=== PATIENT | male | born 1970 | race Caucasian/White ===

== ENCOUNTER → 2022-11-17 10:57 | Outpatient (CLI) | payer OTHER, SELFPAY ==
[2022-11-17 19:46] LABS: Alanine Aminotransferase 33 IU/L (<50); Albumin Globulin Ratio 1.3 (1.0-2.8); Alkaline Phosphatase 100 U/L (38-126); Aspartate Aminotransferase 31 IU/L (17-59); BUN Creatinine Ratio 13.4 (6-22); Bilirubin Total 0.2 mg/dL (0.2-1.3); Blood Urea Nitrogen 9 mg/dL (9-20); Calcium 8.8 mg/dL (8.4-10.2); Carbon Dioxide 28 mmol/L (22-32); Chloride 97 mmol/L (98-107); Cholesterol 210 mg/dL (140-199); Estimated Glomerular Filt Rate > 60 mL/min (>60); Globulin 3.1 g/dL (1.7-4.1); Glucose 87 mg/dL (70-100); HDL Cholesterol 70 mg/dL (40-60); HEMOLYSIS < 15 (0-50); LDL Cholesterol Calculated 66 mg/dL (<100); Potassium 4.5 mmol/L (3.4-5.1); Sodium 135 mmol/L (137-145); Total Protein 7.1 g/dL (6.3-8.2); Triglycerides 370 mg/dL (35-150)
[2022-11-17 19:50] LABS: Hematocrit 43.5 % (41-53); Hemoglobin 14.7 g/dL (13.5-17.5); Mean Corpuscular HGB Conc 33.8 % (30-36); Mean Corpuscular Hemoglobin 32.3 PG (26-34); Mean Corpuscular Volume 95.5 fL (80-100); Platelet Count 305 X10^3/uL (150-400); Red Blood Cell Count 4.56 X10^6/uL (4.5-5.9); Red Cell Distribution Width 12.5 % (11.6-14.8)
[2022-11-17 20:09] LABS: TSH w/ Reflex to FT4 0.78 uIU/mL (0.47-4.68)
== END ==
PROVIDERS: Family Provider Chiropractor; PCP Family Medicine; Visit Provider Family Medicine
DX: Z12.5 Encounter for screening for malignant neoplasm of prostate (principal); R03.0 Elevated blood-pressure reading, without diagnosis of hypertension
CPT/HCPCS: 80053; 80061; 84443; 85027; G0103

== ENCOUNTER 2022-11-29 22:13 | Emergency (ER) | payer OTHER, SELFPAY ==
[2022-11-29 22:30] VITALS: BP 178/118; PULSE 90; RESP 20; TEMP 36.6; O2SAT 97; BMI 25.6
[2022-11-30 00:13] VITALS: PULSE 87; O2SAT 98
[2022-11-30 00:14] VITALS: BP 181/112; PULSE 85; O2SAT 99
[2022-11-30 00:19] VITALS: BP 161/107; PULSE 83; O2SAT 98
[2022-11-30 00:21] LABS: Adenovirus Not Detected (Not Detect); B. parapertussis Not Detected (Not Detecte); Bordetella pertussis Not Detected (Not Detecte); Chlamydophila pneumoniae Not Detected (Not Detect); Coronavirus 229E Not Detected (Not Detect); Coronavirus HKU1 Not Detected (Not Detect); Coronavirus NL 63 Not Detected (Not Detect); Coronavirus OC43 Not Detected (Not Detect); Human Metapneumovirus Not Detected (Not Detect); Human Rhinovirus/Enterovirus Not Detected (Not Detect); Influenza A Not Detected (Not Detect); Influenza B Not Detected (Not Detect); Mycoplasma pneumoniae Not Detected (Not Detect); Parainfluenza Virus 1 Not Detected (Not Detect); Parainfluenza Virus 2 Not Detected (Not Detect); Parainfluenza Virus 3 Not Detected (Not Detect); Parainfluenza Virus 4 Not Detected (Not Detect); Respiratory Syncytial Virus Not Detected (Not Detect); SARS- CoV-2 Not Detected (Not Detecte)
--- NOTE | 2022-11-30 00:23 | ED_ITS ---
HPI - General Adult General Chief complaint: Upper Respiratory Symptoms Stated complaint: SOB since this morning, worsening Time Seen by Provider: 11/30/22 00:08 Source: patient Mode of arrival: Ambulatory History of Present Illness HPI narrative: Patient is a 52-year-old male who has reported that he has been having shortness of breath for the past several weeks. He has been on inhalers which she states has not been helping. He saw his primary clinic this morning. Had labs and a chest x-ray which reported as unremarkable. He stated that he was told that they would not be able to rule out a pulmonary embolism at the clinic so he was advised to come to ER. He denies chest pain. No lower extremity swelling. Some cough. It is nonproductive. No fevers. No prior history of lung pathology. Related Data Previous Rx's Medication Instructions Recorded albuterol sulfate 90 mcg/actuation 2 puff inhalation Q6H PRN 11/02/22 aerosol inhaler shortness of breath or wheezing #8.5 grams ipratropium bromide 17 2 puff inhalation TID PRN 11/23/22 mcg/actuation HFA aerosol inhaler shortness of breath or wheezing (Atrovent HFA) #12.9 grams losartan 50 mg tablet 50 mg PO .pm #30 tabs 11/23/22 tamsulosin 0.4 mg capsule 0.4 mg PO BEDTIME #30 caps 11/23/22 Allergies Allergy/AdvReac Type Severity Reaction Status Date / Time lisinopril Allergy Mild Cough Verified 11/29/22 15:30 Review of Systems Constitutional Constitutional: Reports system reviewed and no additional complaints, except as documented Cardiovascular Cardiovascular: Reports system reviewed and no additional complaints, except as documented Respiratory Respiratory: Reports system reviewed and no additional complaints, except as documented Gastrointestinal Gastrointestinal: Reports system reviewed and no additional complaints, except as documented Integumentary/Breasts Skin/Breast: Reports system reviewed and no additional complaints, except as documented Neurologic Neurologic: Reports system reviewed and no additional complaints, except as documented Hematologic/Lymphatic On Anticoagulants: No Patient History Medical History Anxiety Chicken pox (~1972) Chronic back pain (~2006) Foot pain (~2017) Former tobacco use Fractures (~2015) Migraines (~1996) Shoulder pain (~2006) Tinnitus (~2007) Wears glasses Surgical History (Updated 11/16/22 @ 22:05 by Sheila Roberts) Anesthesia History of kidney stones (~1994) Social History 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 sometimes beer. discussed cessation - has not tried before. he is considering) Smoking Status: Former smoker Substance Use Type: marijuana Exam Initial Vital Signs Initial Vital Signs: Vital Signs Temperature 97.9 F 11/29/22 22:30 Pulse Rate 90 11/29/22 22:30 Respiratory Rate 20 11/29/22 22:30 Blood Pressure 178/118 H 11/29/22 22:30 Pulse Oximetry 97 11/29/22 22:30 Oxygen Delivery Method Room Air 11/29/22 22:30 Const General: cooperative and comfortable HENMT Head: normal to inspection and normocephalic Resp Effort & Inspection: normal respiratory effort Auscultation: clear to auscultation bilaterally Cardio Rate: regular rate Rhythm: regular rhythm Neuro General: patient alert and patient awake Extrem General: No edema Course Orders Ordered: ED Orders 11/29/22 23:37 Complete Blood Count AUTO DIFF Stat Comprehensive Metabolic Panel Stat D Dimer Stat Troponin & CK Cardiac Panel Stat EKG-12 Lead Stat 11/30/22 00:20 BNP [NT-proBNP (BNP-Adult 18+)] Stat Vital Signs Vital signs: Vital Signs - 8 hr 11/30/22 00:13 11/30/22 00:14 11/30/22 00:14 Pulse Rate 87 85 Respiratory Rate Blood Pressure 181/112 H Pulse Oximetry 98 99 Oxygen Delivery Method Room Air Room Air 11/30/22 00:19 11/30/22 00:19 11/30/22 00:30 Pulse Rate 83 Respiratory Rate Blood Pressure 161/107 H 163/109 H Pulse Oximetry 98 Oxygen Delivery Method Room Air 11/30/22 00:30 11/30/22 01:00 11/30/22 01:30 Pulse Rate 81 78 73 Respiratory Rate 22 20 16 Blood Pressure 172/115 H 153/102 H Pulse Oximetry 96 98 95 Oxygen Delivery Method Room Air Room Air Room Air Medical Decision Making Medical Records Medical records reviewed: Yes I reviewed the patient's medical records. Lab Data Lab results reviewed: Yes I reviewed the patient's lab results. 11/30/22 00:20 11/30/22 00:20 Labs: Lab Results 11/29/22 11/30/22 11/30/22 Range/Units 22:46 00:20 00:20 WBC 10.0 (4.5-11.0) X10^3/uL RBC 4.72 (4.5-5.9) X10^6/uL Hgb 15.2 (13.5-17.5) g/dL Hct 43.9 (41-53) % MCV 93.1 (80-100) fL MCH 32.2 (26-34) PG MCHC 34.6 (30-36) % RDW 12.3 (11.6-14.8) % Plt Count 282 (150-400) X10^3/uL Neut % (Auto) 70.4 (50-75) % Lymph % (Auto) 18.7 L (25-40) % Greeley % (Auto) 9.1 (3-14) % Eos % (Auto) 1.2 L (2-4) % Baso % (Auto) 0.6 (0-2) % Neut # (Auto) 7100 H (9313-6872) /uL Lymph # (Auto) 1900 (4830-8779) /uL Greeley # (Auto) 900 (0-900) /uL Eos # (Auto) 100 (0-450) /uL Baso # (Auto) 100 (0-100) /uL D-Dimer 410 (<500) ng/ml Sodium (137-145) mmol/L Potassium (3.4-5.1) mmol/L Chloride (98-107) mmol/L Carbon Dioxide (22-32) mmol/L BUN (9-20) mg/dL Creatinine (0.66-1.25) mg/dL Estimated GFR (>60) mL/min BUN/Creatinine Ratio (6-22) Glucose (70-100) mg/dL Calcium (8.4-10.2) mg/dL Total Bilirubin (0.2-1.3) mg/dL AST (17-59) IU/L ALT (<50) IU/L Alkaline Phosphatase (38-126) U/L Total Creatine Kinase (55-170) U/L CK-MB (CK-2) (<2.37) ng/mL CK-MB (CK-2) Rel Index (1.5-5.0) % Troponin I (0.01-0.034) ng/mL NT-Pro-B Natriuret Pep (<125) pg/mL Total Protein (6.3-8.2) g/dL Albumin (3.5-5.0) g/dL Globulin (1.7-4.1) g/dL Albumin/Globulin Ratio (1.0-2.8) Chlamy pneumoniae PCR Not detected (Not Detect) Adenovirus (PCR) Not detected (Not Detect) B. pertussis DNA (PCR) Not detected (Not Detecte) B.parapertussis DNA PCR Not detected (Not Detecte) Coronavirus OC43 (PCR) Not detected (Not Detect) Coronavirus HKU1 (PCR) Not detected (Not Detect) Coronavirus 229E (PCR) Not detected (Not Detect) SARS-CoV-2 (PCR) Not detected (Not Detecte) Coronavirus NL63 (PCR) Not detected (Not Detect) Human Metapneumovir PCR Not detected (Not Detect) Influenza Type A (PCR) Not detected (Not Detect) Influenza Type B (PCR) Not detected (Not Detect) M. pneumoniae (PCR) Not detected (Not Detect) Parainfluenza 1 (PCR) Not detected (Not Detect) Parainfluenza 2 (PCR) Not detected (Not Detect) Parainfluenza 3 (PCR) Not detected (Not Detect) Parainfluenza 4 (PCR) Not detected (Not Detect) RSV (PCR) Not detected (Not Detect) Entero/Rhino (PCR) Not detected (Not Detect) 11/30/22 11/30/22 Range/Units 00:20 00:20 WBC (4.5-11.0) X10^3/uL RBC (4.5-5.9) X10^6/uL Hgb (13.5-17.5) g/dL Hct (41-53) % MCV (80-100) fL MCH (26-34) PG MCHC (30-36) % RDW (11.6-14.8) % Plt Count (150-400) X10^3/uL Neut % (Auto) (50-75) % Lymph % (Auto) (25-40) % Greeley % (Auto) (3-14) % Eos % (Auto) (2-4) % Baso % (Auto) (0-2) % Neut # (Auto) (5465-3154) /uL Lymph # (Auto) (5059-2297) /uL Greeley # (Auto) (0-900) /uL Eos # (Auto) (0-450) /uL Baso # (Auto) (0-100) /uL D-Dimer (<500) ng/ml Sodium 133 L (137-145) mmol/L Potassium 3.7 (3.4-5.1) mmol/L Chloride 100 (98-107) mmol/L Carbon Dioxide 25 (22-32) mmol/L BUN 13 (9-20) mg/dL Creatinine 0.72 (0.66-1.25) mg/dL Estimated GFR > 60 (>60) mL/min BUN/Creatinine Ratio 18.1 (6-22) Glucose 109 H (70-100) mg/dL Calcium 9.4 (8.4-10.2) mg/dL Total Bilirubin 0.5 (0.2-1.3) mg/dL AST 75 H (17-59) IU/L ALT 53 H (<50) IU/L Alkaline Phosphatase 142 H (38-126) U/L Total Creatine Kinase 118 (55-170) U/L CK-MB (CK-2) 1.18 (<2.37) ng/mL CK-MB (CK-2) Rel Index 1.0 L (1.5-5.0) % Troponin I < 0.012 (0.01-0.034) ng/mL NT-Pro-B Natriuret Pep 67 (<125) pg/mL Total Protein 7.9 (6.3-8.2) g/dL Albumin 4.4 (3.5-5.0) g/dL Globulin 3.5 (1.7-4.1) g/dL Albumin/Globulin Ratio 1.3 (1.0-2.8) Chlamy pneumoniae PCR (Not Detect) Adenovirus (PCR) (Not Detect) B. pertussis DNA (PCR) (Not Detecte) B.parapertussis DNA PCR (Not Detecte) Coronavirus OC43 (PCR) (Not Detect) Coronavirus HKU1 (PCR) (Not Detect) Coronavirus 229E (PCR) (Not Detect) SARS-CoV-2 (PCR) (Not Detecte) Coronavirus NL63 (PCR) (Not Detect) Human Metapneumovir PCR (Not Detect) Influenza Type A (PCR) (Not Detect) Influenza Type B (PCR) (Not Detect) M. pneumoniae (PCR) (Not Detect) Parainfluenza 1 (PCR) (Not Detect) Parainfluenza 2 (PCR) (Not Detect) Parainfluenza 3 (PCR) (Not Detect) Parainfluenza 4 (PCR) (Not Detect) RSV (PCR) (Not Detect) Entero/Rhino (PCR) (Not Detect) ECG Data Attestation: I personally reviewed and interpreted this ECG as follows: Interpretation: Sinus rhythm Ventricular rate is 63 Normal axis Normal QRS Normal QTC No ST T wave changes MDM Narrative Medical decision making narrative: Review the patient's medical record shows that the chest x-ray that was performed earlier today is unremarkable. Patient is not hypoxic. Lungs are clear. Low suspicion for pneumonia. D-dimer is negative. Troponins negative. Low suspicion for CHF. No indication for antibiotics. I do recommend that the patient has follow-up with his primary doctor to discuss the indications for a referral to have pulmonary function testing. No further workup required in the emergency department. Patient was given return precautions. He expressed understanding and agreement. Discharge Plan Departure Patient Disposition: Home Clinical Impression: Shortness of breath Instructions: How to Manage Shortness of Breath Activity Restrictions/Additional Instructions: I recommend that you continue all of your medications like we discussed. Also recommend you contact your primary doctor about follow-up with pulmonary function tests or a follow-up with a dressmaker garment fitter. Return to the emergency department for new symptoms. Prescriptions: No Action losartan 50 mg tablet 50 mg PO .pm Qty: 30 3RF Rx Instructions: . STOP lisinopril due to cough. tamsulosin 0.4 mg capsule 0.4 mg PO BEDTIME Qty: 30 5RF Atrovent HFA 17 mcg/actuation HFA aerosol inhaler 2 puff inhalation TID PRN (Reason: shortness of breath or wheezing) Qty: 12.9 0RF Rx Instructions: take before walking the hill. ok to skip doses. albuterol sulfate 90 mcg/actuation HFA aerosol inhaler 2 puff inhalation Q6H PRN (Reason: shortness of breath or wheezing) Qty: 8.5 0RF Hold Instructions: Patient reported did not work Rx Instructions: USE inhaler prior to exercise. Referrals: Carley العراقي MD [Primary Care Provider] - Stand Alone Forms: Patient Portal/API
[2022-11-30 00:30] VITALS: BP 163/109; PULSE 81; RESP 22; O2SAT 96
[2022-11-30 00:35] LABS: Add Manual Diff / Slide Review NO; Basophils Absolute Auto 100 /uL (0-100); Basophils Percent Auto 0.6 % (0-2); Eosinophils Absolute Auto 100 /uL (0-450); Eosinophils Percent Auto 1.2 % (2-4); Hematocrit 43.9 % (41-53); Hemoglobin 15.2 g/dL (13.5-17.5); Lymphocytes Absolute Auto 1900 /uL (1100-4500); Lymphocytes Percent Auto 18.7 % (25-40); Mean Corpuscular HGB Conc 34.6 % (30-36); Mean Corpuscular Hemoglobin 32.2 PG (26-34); Mean Corpuscular Volume 93.1 fL (80-100); Monocytes Absolute Auto 900 /uL (0-900); Monocytes Percent Auto 9.1 % (3-14); Neutrophils Absolute Auto 7100 /uL (1500-7000); Neutrophils Percent Auto 70.4 % (50-75); Platelet Count 282 X10^3/uL (150-400); Red Blood Cell Count 4.72 X10^6/uL (4.5-5.9); Red Cell Distribution Width 12.3 % (11.6-14.8)
[2022-11-30 00:43] LABS: D Dimer 410 ng/ml (<500)
[2022-11-30 00:46] LABS: Alanine Aminotransferase 53 IU/L (<50); Albumin 4.4 g/dL (3.5-5.0); Albumin Globulin Ratio 1.3 (1.0-2.8); Alkaline Phosphatase 142 U/L (38-126); Aspartate Aminotransferase 75 IU/L (17-59); BUN Creatinine Ratio 18.1 (6-22); Bilirubin Total 0.5 mg/dL (0.2-1.3); Blood Urea Nitrogen 13 mg/dL (9-20); Calcium 9.4 mg/dL (8.4-10.2); Carbon Dioxide 25 mmol/L (22-32); Chloride 100 mmol/L (98-107); Creatine Kinase 118 U/L (55-170); Estimated Glomerular Filt Rate > 60 mL/min (>60); Globulin 3.5 g/dL (1.7-4.1); Glucose 109 mg/dL (70-100); Potassium 3.7 mmol/L (3.4-5.1); Sodium 133 mmol/L (137-145); Total Protein 7.9 g/dL (6.3-8.2)
[2022-11-30 00:56] LABS: NT-proBNP (BNP-Adult 18+) 67 pg/mL (<125)
[2022-11-30 00:58] LABS: Troponin I < 0.012 ng/mL (0.01-0.034)
[2022-11-30 01:00] VITALS: BP 172/115; PULSE 78; RESP 20; O2SAT 98
[2022-11-30 01:02] LABS: Creatine Kinase MB 1.18 ng/mL (<2.37); HEMOLYSIS 41 (0-50)
[2022-11-30 01:30] VITALS: BP 153/102; PULSE 73; RESP 16; O2SAT 95
== END 2022-11-30 01:43 | disposition home or self-care (01) ==
PROVIDERS: Emergency Provider Emergency Medicine; Family Provider Chiropractor; PCP Family Medicine
DX: R06.02 Shortness of breath (principal); Z20.822 Contact with and (suspected) exposure to COVID-19
CPT/HCPCS: 80053; 82550; 82553; 83880; 84484; 85025; 85379; 87633; 99281; 99283

== ENCOUNTER → 2022-12-07 08:44 | Outpatient (CLI) | payer OTHER, SELFPAY ==
[2022-12-07 19:29] LABS: Alanine Aminotransferase 36 IU/L (<50); Albumin 4.2 g/dL (3.5-5.0); Albumin Globulin Ratio 1.3 (1.0-2.8); Alkaline Phosphatase 92 U/L (38-126); Aspartate Aminotransferase 38 IU/L (17-59); BUN Creatinine Ratio 9.5 (6-22); Bilirubin Total 0.3 mg/dL (0.2-1.3); Blood Urea Nitrogen 6 mg/dL (9-20); Calcium 8.7 mg/dL (8.4-10.2); Carbon Dioxide 27 mmol/L (22-32); Chloride 99 mmol/L (98-107); Estimated Glomerular Filt Rate > 60 mL/min (>60); Gamma Glutamyl Transpeptidase 103 U/L (15-73); Globulin 3.2 g/dL (1.7-4.1); Glucose 93 mg/dL (70-100); HEMOLYSIS < 15 (0-50); Potassium 4.1 mmol/L (3.4-5.1); Sodium 139 mmol/L (137-145); Total Protein 7.4 g/dL (6.3-8.2)
[2022-12-07 19:33] LABS: Hemoglobin A1C% w Est Avg Glu 5.5 % (4.0-6.0)
[2022-12-09 15:55] LABS: Hep C Virus Ab w/Reflex Quant NEGATIVE s/c (NEGATIVE)
== END ==
PROVIDERS: Family Provider Chiropractor; PCP Family Medicine; Visit Provider Physician Assistant
DX: E87.1 Hypo-osmolality and hyponatremia (principal); R06.02 Shortness of breath; R74.8 Abnormal levels of other serum enzymes
CPT/HCPCS: 80053; 82977; 83036; 86803

== ENCOUNTER → 2022-12-08 11:21 | Outpatient (CLI) | payer OTHER, SELFPAY ==
--- NOTE | 2022-12-09 15:41 | PM.PFT.1 ---
Pulmonary Function Test Referral & Results Date Patient Seen: 12/08/22 Results: The spirometry demonstrates an FVC of 0.23 L which is 101% of predicted. The FEV1 was measured at 3.97 L which is 100% of predicted. The FEV1/FVC ratio was 76 which is 98% of predicted. Following the administration of bronchodilator there was 29% improvement in FEF 25-75%. Lung volumes show an SVC of 5.40 L which is 107% of predicted. The diffusing capacity was measured at 38.48 which is 114% of predicted. The maximum voluntary ventilation was normal Interpretation: This study demonstrates normal pulmonary function
== END ==
PROVIDERS: Family Provider Chiropractor; PCP Family Medicine; Referring Provider Family Medicine; Visit Provider Family Medicine
DX: R06.00 Dyspnea, unspecified (principal); Z87.891 Personal history of nicotine dependence; J98.8 Other specified respiratory disorders
CPT/HCPCS: 94060; 94726; 94729

== ENCOUNTER 2023-02-24 08:33 | Day surgery (SDC) | payer OTHER, SELFPAY ==
--- NOTE | 2023-02-24 | PATH_ITS ---
[facility] Accession Number: [id number] No. of containers..05 Tissue . 01 Material submitted: . PART A: colon - ASCENDING POLYP PART B: colon - SIGMOID POLYP #1 PART C: colon - SIGMOID POLYP #2 PART D: colon - SIGMOID POLYP #3 PART E: rectum - RECTAL POLYPS . 01 Diagnosis: A. Ascending Colon, Polypectomy: Colonic mucosa with no diagnostic abnormality, consistent with polypoid redundancy. Additional levels were examined. . B. Sigmoid Colon, Polypectomy #1: Tubular adenoma. . C. Sigmoid Colon, Polyp #2: Tubular adenoma. . D. Sigmoid Colon, Polypectomy #3: Tubular adenoma. . E. Rectum, Polypectomy: Multiple fragments of tubular adenoma and hyperplastic polyp. [facility] 03/03/2023 1623 Local . 01 Electronically signed: . Carley Meadows MD, Pathologist NPI- [id number] . 01 Gross description: . Part A: ASCENDING POLYP: Received in formalin is 1 fragment(s) of mercedes, soft tissue measuring 1.2 x 0.4 x 0.4 cm submitted entirely in 1 cassette(s) Part B: SIGMOID POLYP #1: Received in formalin is 1 fragment(s) of mercedes, soft tissue measuring 1.1 x 1.0 x 1.1 cm which is trisected and submitted entirely in 1 cassette(s) Part C: SIGMOID POLYP #2: Received in formalin is 1 fragment(s) of mercedes, soft tissue measuring 0.7 x 0.7 x 1.0 cm which is bisected and submitted entirely in 1 cassette(s) Part D: SIGMOID POLYP #3: Received in formalin is 2 fragments of mercedes soft tissue measuring 0.7 x 0.7 x 0.6 cm in aggregate. Specimen is sectioned and submitted in its entirety in 2 cassettes. Part E: RECTAL POLYPS: Received in formalin are multiple fragment(s) of mercedes, soft tissue measuring 0.1 x 0.1 x 0.1 cm to 1.5 x 0.4 x 0.3 cm submitted entirely in 1 cassette(s) /LING 02/28/2023 1946 Local . 01 Pathologist provided ICD-10: D12.5, D12.8 . 01 CPT . 063432, 163042, 972006, 446041, 105053 Specimen Comment: A courtesy copy of this report has been sent to [phone] Performed at: 01 [facility] [address] [facility] [address] [facility], [place], [place] [id number] MD Skip Mathew MD Phone: [phone]
[2023-02-24] MEDS: LACTATED RINGERS 1,000 ML 100 ML IV (09:12)
[2023-02-24 09:13] VITALS: BP 138/95; PULSE 91; RESP 18; TEMP 36.2; O2SAT 100; BMI 27.0
--- NOTE | 2023-02-24 09:22 | PM.HP.1 ---
History of Present Illness History of Present Illness Date Patient Seen: 02/24/23 Time Patient Seen: 09:22 Chief complaint: Colonoscopy Narrative: Denis is a 52-year-old man who is here for colonoscopy. He has never had a colonoscopy before. He has no known family history of colon cancer. He is has recently been treated for hypertension and he has been somewhat dyspneic and is seen a dental hygiene instructor Pricilla. His next cardiology appointment is in a few weeks. 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 sometimes beer. discussed cessation - has not tried before. he is considering) Meds Home Medications and Allergies Home Medications Medication Instructions Recorded Confirmed Type tamsulosin 0.4 mg capsule 0.4 mg PO BEDTIME #30 caps 11/23/22 02/24/23 Rx atorvastatin 40 mg tablet 40 mg PO BEDTIME #30 tabs 01/13/23 02/24/23 Rx losartan 50 mg tablet 100 mg PO .pm #180 tabs 02/22/23 02/24/23 Rx naltrexone 50 mg tablet 50 mg PO DAILY #90 tabs 02/22/23 02/24/23 Rx Allergies Allergy/AdvReac Type Severity Reaction Status Date / Time lisinopril Allergy Mild Cough Verified 02/24/23 08:47 ipratropium [From Atrovent] AdvReac Intermediate shortness Verified 02/24/23 08:47 of breath Exam Const General: healthy appearing Resp Effort & Inspection: normal respiratory effort Assessment & Plan Assessment and plan (1) Screening for colon cancer: Status: Acute Plan We reviewed the risks and benefits of colonoscopy for colon cancer screening and he would like to proceed
--- NOTE | 2023-02-24 10:48 | PM.OP.COLON ---
Operative Date/Time/Diagnoses Date of procedure: 02/24/23 Time of procedure: 10:48 Pre-op diagnosis: Colon cancer screening Post-op diagnosis: same Procedure & Clinicians Study performed: Colonoscopy Same procedure as scheduled: Yes Surgeon: Anselmo Burton Procedure Notes Procedure in detail: Surgeon: Anselmo Burton MD Anesthesia: Guillermo Suarez CRNA Procedure: The patient was brought to the endoscopy suite, placed in left lateral decubitus position. The patient was connected to monitoring devices. A time-out was performed. Sedation was administered. Once the patient was adequately sedated, a digital rectal exam was performed and was normal. The scope was then inserted and advanced to the cecum where the appendiceal orifice was identified and photographed. The scope was then slowly withdrawn over greater than 6 minutes. The mucosa was thoroughly inspected. There was a 7 mm polyp in the ascending colon removed with a hot snare. There was a 1.5 cm sigmoid polyp at 28 cm removed with a hot snare and sent as ?sigmoid colon polyp 1.?. There was a 2 cm polyp in the sigmoid colon removed with a hot snare and sent as ?sigmoid polyp 2?. There was a 3 cm sigmoid colon polyp at 20 cm. The main portion of the polyp was removed with a hot snare and a portion of the base of the polyp was also removed with a hot snare and sent as ?sigmoid polyp 3?. There were 5 polyps in the rectum. The first rectal polyp was at 18 cm and was 1 cm. A second rectal polyp was at 16 cm and was 1 cm. In the mid to distal rectum there were 2 8 mm polyps and a 5 mm polyp all removed with hot snare. The most distal of these was at 15 cm. All the rectal polyps were sent together. The scope was retroflexed in the rectum. No other abnormalities were seen. The scope was straightened and removed. The patient was awakened and brought to recovery. Scope withdrawal time: 34 minutes Sedation time: 40 minutes EBL: 10 mL Findings: Multiple polyps as detailed above Post-procedure Disposition: PACU
[2023-02-24 10:49] VITALS: BP 92/64; PULSE 57; RESP 12; TEMP 36.1; O2SAT 93
[2023-02-24 10:55] VITALS: BP 93/65; PULSE 52; RESP 13; O2SAT 93
[2023-02-24 10:59] VITALS: BP 108/82; PULSE 78; RESP 23; O2SAT 96
[2023-02-24 11:04] VITALS: BP 114/84; PULSE 67; RESP 13; TEMP 36.3; O2SAT 97
[2023-02-24 11:14] VITALS: BP 130/97; PULSE 62; RESP 15; TEMP 36.3; O2SAT 96
== END 2023-02-24 11:33 | disposition home or self-care (01) ==
PROVIDERS: Family Provider Chiropractor; PCP Family Medicine; Referring Provider Surgery; Visit Provider Surgery
PROC: 0DJD8ZZ Inspection of Lower Intestinal Tract, Via Natural or Artificial Opening Endoscopic (ICD-10-PCS; CPT 45378; principal; 2023-02-24 09:45)
DX: Z12.11 Encounter for screening for malignant neoplasm of colon (principal); D12.5 Benign neoplasm of sigmoid colon; D12.8 Benign neoplasm of rectum
CPT/HCPCS: 45385; J2704

== ENCOUNTER → 2023-10-05 10:04 | Outpatient (CLI) | payer OTHER, SELFPAY ==
[2023-10-05 19:27] LABS: Add Manual Diff / Slide Review NO; Basophils Absolute Auto 100 /uL (0-100); Basophils Percent Auto 0.9 % (0-2); Eosinophils Absolute Auto 200 /uL (0-450); Eosinophils Percent Auto 2.8 % (2-4); Hematocrit 42.6 % (41-53); Hemoglobin 14.6 g/dL (13.5-17.5); Lymphocytes Absolute Auto 1300 /uL (1100-4500); Lymphocytes Percent Auto 23.4 % (25-40); Mean Corpuscular HGB Conc 34.4 % (30-36); Mean Corpuscular Hemoglobin 31.8 PG (26-34); Mean Corpuscular Volume 92.6 fL (80-100); Monocytes Absolute Auto 500 /uL (0-900); Monocytes Percent Auto 8.5 % (3-14); Neutrophils Absolute Auto 3700 /uL (1500-7000); Neutrophils Percent Auto 64.4 % (50-75); Platelet Count 287 X10^3/uL (150-400); White Blood Cell Count 5.7 X10^3/uL (4.5-11.0)
[2023-10-05 19:33] LABS: Hemoglobin A1C% w Est Avg Glu 5.3 % (4.0-6.0)
[2023-10-05 19:56] LABS: Alanine Aminotransferase 64 IU/L (<50); Albumin 4.1 g/dL (3.5-5.0); Albumin Globulin Ratio 1.2 (1.0-2.8); Alkaline Phosphatase 81 U/L (38-126); Aspartate Aminotransferase 47 IU/L (17-59); BUN Creatinine Ratio 15.5 (6-22); Bilirubin Total 0.8 mg/dL (0.2-1.3); Blood Urea Nitrogen 11 mg/dL (9-20); Calcium 9.8 mg/dL (8.4-10.2); Carbon Dioxide 29 mmol/L (22-32); Chloride 98 mmol/L (98-107); Cholesterol 158 mg/dL (140-199); Estimated Glomerular Filt Rate > 60 mL/min (>60); Gamma Glutamyl Transpeptidase 182 U/L (15-73); Globulin 3.3 g/dL (1.7-4.1); Glucose 112 mg/dL (70-100); HDL Cholesterol 73 mg/dL (40-60); HEMOLYSIS < 15 (0-50); LDL Cholesterol Calculated 63 mg/dL (<100); Potassium 4.5 mmol/L (3.4-5.1); Sodium 135 mmol/L (137-145); Total Protein 7.4 g/dL (6.3-8.2); Triglycerides 109 mg/dL (35-150)
[2023-10-08 04:33] LABS: Lipoprotein (a) 64.1 nmol/L (<75.0)
[2023-10-09 07:36] LABS: Insulin Level Total 10.6 uIU/mL (2.6-24.9)
== END ==
PROVIDERS: Family Provider Chiropractor; PCP Family Medicine; Visit Provider Naturopath
DX: Z00.00 Encounter for general adult medical examination without abnormal findings (principal); R74.8 Abnormal levels of other serum enzymes; R94.4 Abnormal results of kidney function studies; E78.00 Pure hypercholesterolemia, unspecified
CPT/HCPCS: 80053; 80061; 82977; 83036; 83525; 83695; 85025

== ENCOUNTER → 2024-04-23 10:57 | Outpatient (CLI) | payer BC, SELFPAY ==
[2024-04-23 20:41] LABS: Alanine Aminotransferase 52 IU/L (<50); Albumin 4.2 g/dL (3.5-5.0); Albumin Globulin Ratio 1.4 (1.0-2.8); Alkaline Phosphatase 107 U/L (38-126); Aspartate Aminotransferase 51 IU/L (17-59); Bilirubin Unconjugated 0.4 mg/dL (0.0-1.1); Globulin 3.1 g/dL (1.7-4.1); HEMOLYSIS < 15 (0-50); Total Protein 7.3 g/dL (6.3-8.2)
== END ==
PROVIDERS: Family Provider Chiropractor; PCP Family Medicine; Visit Provider Naturopath
DX: R94.5 Abnormal results of liver function studies (principal)
CPT/HCPCS: 80076

== ENCOUNTER 2024-12-02 08:56 | Observation (INO) | payer BC, SELFPAY ==
[2024-12-02] VITALS (12 sets, daily range): BP systolic 128–152; BP diastolic 72–97; PULSE 68–86; RESP 12–22; TEMP 36.6–36.7; O2SAT 96–99; BMI 26.9
--- NOTE | 2024-12-02 09:20 | ED_ITS ---
HPI - Abdominal Pain General Chief Complaint: Skin/Abscess/Foreign Body Stated Complaint: cant swallow Time Seen by Provider: 12/02/24 09:13 Source: patient Mode of arrival: Family Vehicle History of Present Illness HPI narrative: Patient is a healthy 54-year-old male who presents today with steak stuck in his esophagus 2 days. He reports it has been there since Tuesday. He did not eat anything all day yesterday. He is tried to keep sips of fluid down it works the often it does not. He is thrown up it is painful. No longer able to swallow his own secretions. He was able to have some black coffee and keep it down. He tried warm sylvia tiffani all night on Tuesday. Related Data Previous Rx's Medication Instructions Recorded naltrexone 50 mg tablet 50 mg PO DAILY #90 tabs 02/22/23 hydrochlorothiazide 25 mg tablet 25 mg PO QAM #30 tabs 04/21/23 thiamine HCl (vitamin B1) 100 mg See Rx Instructions PO DAILY #90 05/19/23 tablet tabs losartan 50 mg tablet 100 mg (2 x 50 mg) PO QPM for 10/18/23 blood pressure - take every day even if normal #60 tabs tamsulosin 0.4 mg capsule 0.4 mg PO ONCE PM #90 caps 11/21/23 atorvastatin 40 mg tablet 40 mg PO ONCE PM for cholesterol - 03/30/24 prevents heart attack/stroke #30 tabs Allergies Allergy/AdvReac Type Severity Reaction Status Date / Time lisinopril Allergy Mild Cough Verified 12/02/24 09:18 ipratropium [From Atrovent] AdvReac Intermediate shortness Verified 12/02/24 09:18 of breath Patient History Medical History Wears glasses Anxiety Migraines (~1996) Shoulder pain (~2006) Fractures (~2015) Foot pain (~2017) Chronic back pain (~2006) Chicken pox (~1972) Tinnitus (~2007) Former tobacco use Surgical History Anesthesia History of kidney stones (~1994) Social History household members: none 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 RESPIRATORY: No stridor not drooling to be managing secretions ABDOMEN: Soft, nontender. Normoactive bowel sounds all 4 quadrants. No guarding or rebound. EXTREMITIES: Normal range of motion, no clubbing or edema. Neurovascularly intact NEUROLOGICAL: Alert and oriented x4.Normal gait and speech. SKIN: Warm, dry, no laceration, no petechiae, no rashes or lesions. Course Orders Ordered: ED Orders 12/02/24 09:49 Chest [XR chest 2V] Stat Discontinued Medications Acetaminophen (Acetaminophen 325 Mg Tablet) 650 mg PO NOW ONE Stop: 12/02/24 12:38 Benzocaine (Benzocaine/Menthol 1 Owen Pkt) 1 each PO PRN PRN PRN Reason: Sore Throat Last Admin: 12/02/24 12:54 Dose: 1 each Documented By: ESTHER Dexamethasone (Dexamethasone 10 Mg/Ml Vial) 8 mg IV NOW PRN PRN Reason: Nausea And Vomiting Fentanyl (Fentanyl 100 Mcg/2 Ml Inj) 0 mcg IV Q5M PRN PRN Reason: Pain, Moderate (4-6) Glucagon (Glucagon,Human Recombinant 1 Mg/Ml Vial) 1 mg IV NOW ONE Stop: 12/02/24 09:23 Last Admin: 12/02/24 10:01 Dose: 1 mg Documented By: LEESA Hydroxyzine HCl (Hydroxyzine Hcl 25 Mg Tablet) 25 mg PO NOW PRN PRN Reason: Pain, Mild (1-3) Sodium Chloride (Normal Saline 0.9%) 1,000 mls @ 1,000 mls/hr IV BOLUS ONE Stop: 12/02/24 10:54 Last Infusion: 12/02/24 11:21 Dose: Infused Documented By: Admin: 12/02/24 10:09 Dose: 1,000 mls/hr Documented By: LEESA Lactated Ringer's (Lactated Ringers) 1,000 mls @ 42 mls/hr IV CONT UMBERTO Last Infusion: 12/02/24 12:57 Dose: Infused Documented By: Admin: 12/02/24 11:33 Dose: 42 mls/hr Documented By: ESTHER Ketorolac Tromethamine (Ketorolac 30 Mg/Ml Vial) 15 mg IV NOW PRN PRN Reason: Pain, Moderate (4-6) Last Admin: 12/02/24 12:54 Dose: 15 mg Documented By: ESTHER Morphine Sulfate (Morphine 2 Mg/Ml Inj) 2 mg IV NOW ONE Stop: 12/02/24 09:56 Last Admin: 12/02/24 10:09 Dose: 2 mg Documented By: LEESA Ondansetron HCl (Ondansetron 4 Mg/2 Ml Inj) 4 mg IV NOW PRN PRN Reason: Nausea And Vomiting Pantoprazole Sodium (Pantoprazole 40 Mg Vial) 40 mg IV NOW ONE Stop: 12/02/24 09:23 Last Admin: 12/02/24 10:03 Dose: 40 mg Documented By: LEESA Vital Signs Vital signs: Vital Signs - 8 hr 12/02/24 09:05 12/02/24 09:05 12/02/24 09:14 Temperature 97.9 F Pulse Rate 86 84 Respiratory Rate 22 18 Blood Pressure 152/94 H 152/94 H Pulse Oximetry 96 96 Oxygen Delivery Method Room Air Room Air 12/02/24 09:30 12/02/24 09:30 12/02/24 10:00 Temperature Pulse Rate 83 Respiratory Rate 20 Blood Pressure 130/89 129/88 Pulse Oximetry 97 Oxygen Delivery Method 12/02/24 10:00 12/02/24 10:17 12/02/24 10:17 Temperature Pulse Rate 80 83 Respiratory Rate Blood Pressure 152/87 H Pulse Oximetry 97 96 Oxygen Delivery Method 12/02/24 10:30 12/02/24 10:30 12/02/24 10:44 Temperature Pulse Rate 76 75 Respiratory Rate 15 Blood Pressure 131/80 Pulse Oximetry 98 99 Oxygen Delivery Method Room Air 12/02/24 10:44 12/02/24 11:00 12/02/24 11:00 Temperature Pulse Rate 77 Respiratory Rate 17 Blood Pressure 128/84 129/84 Pulse Oximetry 98 Oxygen Delivery Method Room Air MDM - Abdominal Pain Imaging Data Chest x-ray: Radiologist's Impression: PROCEDURE: XR CHEST 2V INDICATIONS: steak stuck in throat TECHNIQUE: 2 views of the chest were acquired. COMPARISON: [facility] ([place]), CR, XR CHEST 2V, 11/29/2022, 16:18. [facility] ([place]), CR, XR CHEST 2V, 11/23/2022, 15:46. FINDINGS: Surgical changes and devices: None. Lungs and pleura: Lungs are clear. No pleural effusions or pneumothorax. Mediastinum: Mediastinal contours are normal. Heart size is normal. Bones and chest wall: No suspicious bony abnormalities. Soft tissues appear unremarkable. IMPRESSION: No acute cardiopulmonary abnormality is seen. Dictated by: Lindsay Enriquez M.D. on 12/02/2024 at 9:22 MDM Narrative Medical decision making narrative: 0945 Dr. Li recommends giving medication waiting 30 minutes also request chest x-ray 1050 no improvement after medications. He does not seem to be spitting up his meds or saliva but still having lots of pain, airway intact Dr. Li notified we will get patient in for EGD Discharge Plan Departure Patient Disposition: Admitted to Surgery Clinical Impression: Esophageal foreign body Admit Date/Time: 12/02/24 11:10 Admit Provider: Herb Li
--- NOTE | 2024-12-02 09:49 | DI.RAD.S_ITS ---
PROCEDURE: XR CHEST 2V INDICATIONS: steak stuck in throat TECHNIQUE: 2 views of the chest were acquired. COMPARISON: [facility] ([place]), CR, XR CHEST 2V, 11/29/2022, 16:18. [facility] ([place]), CR, XR CHEST 2V, 11/23/2022, 15:46. FINDINGS: Surgical changes and devices: None. Lungs and pleura: Lungs are clear. No pleural effusions or pneumothorax. Mediastinum: Mediastinal contours are normal. Heart size is normal. Bones and chest wall: No suspicious bony abnormalities. Soft tissues appear unremarkable. IMPRESSION: No acute cardiopulmonary abnormality is seen. Dictated by: Lindsay Enriquez M.D. on 12/02/2024 at 9:22 Approved by: Lindsay Enriquez M.D. on 12/02/2024 at 9:23
[2024-12-02] MEDS: GLUCAGON,HUMAN RECOMBINANT 1 MG/ML VIAL IV (10:01)
[2024-12-02] MEDS: PANTOPRAZOLE 40 MG VIAL IV (10:03)
[2024-12-02] MEDS: MORPHINE 2 MG/ML INJ IV (10:09)
[2024-12-02] MEDS: SODIUM CHLORIDE 0.9% 1,000 ML 1000 ML IV (10:09)
--- NOTE | 2024-12-02 10:42 | PC.NURSE ---
foregin body of steak from Tuesday night's dinner. able to swallow small sips of water, not eating. talking in full sentences. right side of throat is red , slightly swollen
--- NOTE | 2024-12-02 10:45 | PC.NURSE ---
reports he is able to take a few sips of warm gingerale. feels swollen and tender on the right side still. Dr. Dave aware
--- NOTE | 2024-12-02 11:17 | PM.HP.IH.1 ---
History of Present Illness History of Present Illness Date Patient Seen: 12/02/24 Time Patient Seen: 11:17 Chief complaint: cant swallow Narrative: 54-year-old white male 8 steak yesterday for dinner and has not been able to swallow since then. Did not improve with glucagon. Previous colonoscopy in our system had polyps, otherwise unremarkable. He has had elevated liver function tests in the past, alcoholism, follows with a naturopathic primary care doctor. Naltrexone is on his med list but he does not take it. 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) Smoking Status: Former smoker alcohol intake: former Meds Home Medications and Allergies Home Medications Medication Instructions Recorded Confirmed Type naltrexone 50 mg tablet 50 mg PO DAILY #90 tabs 02/22/23 05/19/23 Rx hydrochlorothiazide 25 mg tablet 25 mg PO QAM #30 tabs 04/21/23 05/19/23 Rx thiamine HCl (vitamin B1) 100 mg See Rx Instructions PO DAILY #90 05/19/23 05/19/23 Rx tablet tabs losartan 50 mg tablet 100 mg (2 x 50 mg) PO QPM for 10/18/23 Rx blood pressure - take every day even if normal #60 tabs tamsulosin 0.4 mg capsule 0.4 mg PO ONCE PM #90 caps 11/21/23 Rx atorvastatin 40 mg tablet 40 mg PO ONCE PM for cholesterol - 03/30/24 Rx prevents heart attack/stroke #30 tabs Allergies Allergy/AdvReac Type Severity Reaction Status Date / Time lisinopril Allergy Mild Cough Verified 12/02/24 09:18 ipratropium [From Atrovent] AdvReac Intermediate shortness Verified 12/02/24 09:18 of breath Exam Vital Signs (past 8 hours): - 12/02/24 09:05 12/02/24 09:05 12/02/24 09:14 Temperature 97.9 F Pulse Rate 86 84 Respiratory Rate 22 18 Blood Pressure 152/94 H 152/94 H Pulse Oximetry 96 96 Oxygen Delivery Method Room Air Room Air 12/02/24 09:30 12/02/24 09:30 12/02/24 10:00 Temperature Pulse Rate 83 Respiratory Rate 20 Blood Pressure 130/89 129/88 Pulse Oximetry 97 Oxygen Delivery Method 12/02/24 10:00 12/02/24 10:17 12/02/24 10:17 Temperature Pulse Rate 80 83 Respiratory Rate Blood Pressure 152/87 H Pulse Oximetry 97 96 Oxygen Delivery Method 12/02/24 10:30 12/02/24 10:30 12/02/24 10:44 Temperature Pulse Rate 76 75 Respiratory Rate 15 Blood Pressure 131/80 Pulse Oximetry 98 99 Oxygen Delivery Method Room Air 12/02/24 10:44 12/02/24 11:00 12/02/24 11:00 Temperature Pulse Rate 77 Respiratory Rate 17 Blood Pressure 128/84 129/84 Pulse Oximetry 98 Oxygen Delivery Method Room Air Oxygen Delivery Method Room Air Narrative Exam Narrative: Gen: NAD, ambulating in the hallway, appears well HEENT: Sclera are anicteric, head is normocephalic and atraumatic, trachea is midline. CV: RRR, no JVD Resp: clear to auscultation bilaterally, equal chest wall movement bilaterally Abd: soft, nontender, normoactive bowel sounds Ext: no edema, full range of motion Neuro: Cranial nerves II-XII grossly intact, no focal deficits Skin: No erythema or ecchymosis Objective Imaging Chest x-ray: My impression: No effusions, masses. Air filled esophagus noted. Assessment & Plan Assessment and plan (1) Esophagus, foreign body: Status: Acute Assessment & Plan narrative: Risks, benefits alternatives including risk of esophageal perforation need for additional procedures or surgery explained to the patient. Patient agrees to proceed with esophagogastroduodenoscopy for food bolus disimpaction Time-Based Coding :: [TOTAL MINUTES] spent with patient and on the chart (including review of chart, obtaining history, exam, reviewing outside data, placing orders, documenting exam and treatment plan, and counseling patient) on [DATE]. [employer] Document charge(s): Yes Charge Codes Initial inpatient/observation care: 14045
[2024-12-02] MEDS: LACTATED RINGERS 1,000 ML 42 ML IV (11:33)
--- NOTE | 2024-12-02 12:31 | P.OP.EGD_ITS ---
Operative Date/Time/Diagnoses Date of procedure: 12/02/24 Time of procedure: 12:31 Pre-op diagnosis: Esophageal foreign body Post-op diagnosis: other (Distal esophageal erosions, foreign body had passed) Procedure & Clinicians Study performed: Esophagogastroduodenoscopy Same procedure as scheduled: Yes Indications: Concern for foreign body Surgeon: Herb Li Procedure Notes SCOAP/Timeout: Performed Procedure in detail: Patient was brought into the endo suite. General anesthesia was induced. Time- out was performed. Bite block was placed around the endotracheal tube. Gastroscope was inserted into the 2nd portion of the duodenum without difficulty or any evidence of food residue. The scope was carefully withdrawn and inspection showed some mild erythema at the antrum. Retroflexed view did not show a significant hiatal hernia or any food within the stomach. The scope was withdrawn to the GE junction which showed some linear erosions in the distal esophagus, but no strictures or webs. There was no food within the esophagus. The scope was withdrawn. Patient was extubated transported to PACU in stable condition for anticipated same-day discharge Findings: gastritis Specimen(s): none sent Complications: none Impression: No residual foreign body Post-procedure Recommendations: Other recommendation(s) (Soft diet for the next 2 weeks. ) Plan for aftercare: Home with spouse Follow up: as needed Disposition: PACU
[2024-12-02] MEDS: BENZOCAINE/MENTHOL 1 LOZ PKT 1 EACH PO (12:54)
[2024-12-02] MEDS: KETOROLAC 30 MG/ML VIAL 15 MG IV (12:54)
== END 2024-12-02 13:23 | disposition home or self-care (01) ==
LOC: ED 09:13 → AC 11:11
PROVIDERS: Admitting Provider Surgery; Emergency Provider Emergency Medicine; Family Provider Chiropractor; PCP Family Medicine; Referring Provider Emergency Medicine; Visit Provider Surgery
PROC: 0DJ08ZZ Inspection of Upper Intestinal Tract, Via Natural or Artificial Opening Endoscopic (ICD-10-PCS; CPT 43235; principal; 2024-12-02 12:00)
DX: T18.108A Unspecified foreign body in esophagus causing other injury, initial encounter (principal); Z87.891 Personal history of nicotine dependence; K22.10 Ulcer of esophagus without bleeding
CPT/HCPCS: 43235; 36415; 71046; 96361; 96374; 96375; 99284; G0378; J1100; J1610; J1885; J2270; J2405; J2470; J2704